=== PATIENT | male | born 1980 | race African-American/Black ===

== ENCOUNTER 2017-06-14 16:17 | Emergency (ER) | payer SELFPAY ==
[2017-06-14 16:26] VITALS: BP 139/80
--- NOTE | 2017-06-14 17:02 | ER Document Report ---
ED Extremity Problem, Upper - General Chief Complaint: R arm pain/ swelling Stated Complaint: RIGHT ARM PAIN Time Seen by Provider: 06/14/17 16:36 Mode of Arrival: Ambulatory Information source: Patient TRAVEL OUTSIDE OF THE [place] IN LAST 30 DAYS: No - HPI Patient complains to provider of: Pain Notes: Patient is here with complaints of right arm pain. The patient states that he donated plasma yesterday and now has a bruised swollen area in the right AC where he had donated from. States that he felt hot throughout the night last night but did not actually take his temperature. No redness. No drainage. He denies any numbness, tingling, weakness. He does state that his arm feels "heavy". He has pain when he touches the area or flexes the arm, it is better with rest. He denies any nausea, vomiting, diarrhea. No chest pain shortness of breath. No other complaints at this time. He is on no blood thinning medications. - Related Data Allergies/Adverse Reactions: No Known Allergies Allergy (Unverified 06/14/17 16:21) Past Medical History - Social History Smoking Status: Never Smoker Frequency of alcohol use: None Drug Abuse: None Family History: Reviewed & Not Pertinent Patient has suicidal ideation: No Patient has homicidal ideation: No Renal/ Medical History: Denies: Hx Peritoneal Dialysis Review of Systems - Review of Systems -: Yes All other systems reviewed and negative Physical Exam - Vital signs Vitals: Temp Pulse Resp BP Pulse Ox 98.7 F 78 16 139/80 H 97 06/14/17 16:24 06/14/17 16:24 06/14/17 16:24 06/14/17 16:24 06/14/17 16:24 - Notes Notes: GENERAL: alert, cooperative, nontoxic, no distress. HEAD: normocephalic, atraumatic EYES: conjunctiva pink without discharge, no external redness or swelling. EARS: no external swelling, no external redness NOSE: atraumatic, no external swelling MOUTH/THROAT: mucous membranes moist and pink NECK: soft, supple, full range of motion, no meningismus. CHEST: no distress, lungs clear and equal throughout. No wheezing, rales, rhonchi. CARDIAC: regular rate and rhythm, no murmur, normal capillary refill, normal pulses. BACK: full range of motion, no CVA tenderness. EXTREMITIES: full range of motion of all extremities. Moderate-sized hematoma to the right AC with some bruising and mild tenderness to palpation. No erythema. No fluctuance. Compartments are soft. Normal pulse and sensation distally. NEURO: alert and oriented 3, no focal deficits, full range of motion of all extremities. PYSCH: appropriate mood, affect. Patient is cooperative. SKIN: pink, warm, dry, no rash. Course - Re-evaluation Re-evalutation: 06/14/17 16:58 Patient is nontoxic appearing with stable vitals. Is here with complaints of right arm pain after donating plasma yesterday. He is noted to have a hematoma to the right AC. Compartments are soft with no sign of compartment syndrome. He has a normal pulse and sensation distally. There is no redness or signs of infection. He has no rash. He is on no blood thinning medications. This point the patient can be discharged home with instructions to apply warm compresses to the area. I will prescribe him Naprosyn he can take for pain. Follow-up if he has not better in 1 week, sooner for worsening pain, fever, redness, numbness, tingling, weakness, any further concerns. The patient is noted to have elevated blood pressure during today's emergency department visit. The patient was informed of this finding. The patient was instructed that this may be related to pre-hypertension and requires further evaluation with a primary care provider. The patient has no hypertensive symptoms at this time. The patient's emergency department workup and current diagnosis were explained to the patient and or family. Follow-up instructions were provided. Medications if prescribed were discussed. Instructions for when to return to the emergency department including specific worrisome symptoms were discussed with the patient and/or family. - Vital Signs Vital signs: Temp Pulse Resp BP Pulse Ox 98.7 F 78 16 139/80 H 97 06/14/17 16:24 06/14/17 16:24 06/14/17 16:24 06/14/17 16:24 06/14/17 16:24 Discharge - Discharge Clinical Impression: Hematoma Condition: Stable Disposition: HOME, SELF-CARE Instructions: Hematoma ([facility]) Additional Instructions: Take medications as prescribed. Apply warm compresses to sore area. Follow-up if not better in 1 week, sooner for worsening symptoms, high fever, redness, numbness, tingling, weakness, any further concerns. Your blood pressure was elevated during today's visit. Have this rechecked with your doctor. Prescriptions: Naproxen [Naprosyn] 500 mg PO BID #20 tablet Forms: Elevated Blood Pressure, Smoking Cessation Education Referrals: [facility] [Provider Group] - Follow up as needed
== END 2017-06-14 17:07 | disposition home or self-care (01) ==
LOC: ER 16:17
DX: L76.32 Postprocedural hematoma of skin and subcutaneous tissue following other procedure (principal); Y84.8 Other medical procedures as the cause of abnormal reaction of the patient, or of later complication, without mention of misadventure at the time of the procedure; R03.0 Elevated blood-pressure reading, without diagnosis of hypertension
CPT/HCPCS: 99283

== ENCOUNTER 2018-11-10 20:04 | Emergency (ER) | payer SELFPAY ==
--- NOTE | 2018-11-10 21:08 | ER Document Report ---
ED Medical Screen (RME) - General Chief Complaint: Insect Bite Stated Complaint: BUG BITE Time Seen by Provider: 11/10/18 20:48 Mode of Arrival: Wheelchair Information source: Patient Notes: Patient is an otherwise healthy 38-year-old male presenting to the emergency department with complaint of redness and swelling to his right foot at the base of his second third fourth and fifth toes. He denies any known injury. Patient thinks he might of been stung by an insect but he is not sure. Patient denies any history of gout. Patient reports the pain is severe and he is unable to put on his shoe. Exam: Cap refill less than 3 seconds, swelling noted with erythema to dorsal surface of left foot near the base of the second third and fourth toes. I have greeted and performed a rapid initial assessment of this patient. A comprehensive ED assessment and evaluation of the patient, analysis of test results and completion of the medical decision making process will be conducted by additional ED providers. I have specifically instructed the patient or family members with the patient to immediately return to any nursing staff should anything change in the patient's condition or with their chief complaint. This medical record was dictated with voice recognizing software. There may be grammatical, syntax errors that are unintended. TRAVEL OUTSIDE OF THE [place] IN LAST 30 DAYS: No - Related Data Allergies/Adverse Reactions: No Known Allergies Allergy (Unverified 06/14/17 16:21) Past Medical History Renal/ Medical History: Denies: Hx Peritoneal Dialysis Physical Exam - Vital signs Vitals: Temp Pulse Resp BP Pulse Ox 98.8 F 86 17 118/64 96 11/10/18 20:09 11/10/18 20:09 11/10/18 20:09 11/10/18 20:09 11/10/18 20:09 Course - Vital Signs Vital signs: Temp Pulse Resp BP Pulse Ox 98.8 F 86 17 118/64 96 11/10/18 20:09 11/10/18 20:09 11/10/18 20:09 11/10/18 20:09 11/10/18 20:09
[2018-11-10] MEDS ORDERED: IBUPROFEN 600 MG TABLET PO ONE (21:49)
[2018-11-10] MEDS ORDERED: CLINDAMYCIN HCL 150 MG CAPSULE PO ONE (21:49)
--- NOTE | 2018-11-10 21:49 | ER Document Report ---
ED Skin Rash/Insect Bite/Abscs - General Chief Complaint: Insect Bite Stated Complaint: BUG BITE Time Seen by Provider: 11/10/18 20:48 Mode of Arrival: Wheelchair TRAVEL OUTSIDE OF THE [place] IN LAST 30 DAYS: No - HPI Notes: This is a 38-year-old gentleman who presents today with a complaint of an insect bite to his right foot. Patient states that he thinks he might have been bitten by an insect yesterday around noon. He states that he put his shoe on and then felt like "my foot was swelling my sneakers." He took it out and noticed the redness and swelling. He denies any snakebite. He denies any trauma. He denies any history of gout. Denies any fever or chills. Describes his symptoms as moderate. Pain is worse with weightbearing. - Related Data Allergies/Adverse Reactions: No Known Allergies Allergy (Unverified 06/14/17 16:21) Past Medical History - General Information source: Patient - Social History Smoking Status: Never Smoker Family History: Reviewed & Not Pertinent Patient has suicidal ideation: No Patient has homicidal ideation: No Renal/ Medical History: Denies: Hx Peritoneal Dialysis Review of Systems - Review of Systems Constitutional: denies: Chills, Fever, Weakness Skin: Change in color -: Yes All other systems reviewed and negative Physical Exam - Vital signs Vitals: Temp Pulse Resp BP Pulse Ox 98.8 F 86 17 118/64 96 11/10/18 20:09 11/10/18 20:09 11/10/18 20:09 11/10/18 20:09 11/10/18 20:09 - General General appearance: Appears well, Alert - Respiratory Respiratory status: No respiratory distress Chest status: Nontender Breath sounds: Normal Chest palpation: Normal - Cardiovascular Rhythm: Regular Heart sounds: Normal auscultation Murmur: No - Extremities General upper extremity: Normal inspection, Nontender, Normal color, Normal ROM, Normal temperature General lower extremity: Normal inspection, Normal ROM, Normal temperature, Normal weight bearing. No: Angeles's sign Foot: Tender - There is erythema and swelling on the dorsum of the right foot just proximal to the second and third and fourth toes. There is no fluctuance to suggest drainable abscess. There is normal distal neurovascular exam of the right lower extremity. No obvious bony tenderness. I do not see any obvious puncture wounds. Course - Re-evaluation Re-evalutation: 11/10/18 21:48 Differential diagnosis includes infected insect bite versus trauma. Strongly doubt acute gouty arthritis with no involvement of the big toe. Doubt osteo-. Will get plain films to rule out any x-ray evidence of osteo-. We will put him on clindamycin and have him follow-up for recheck. 11/10/18 22:27 Patient is doing well. X-rays negative. Follow-up discussed with patient. He is stable for discharge. - Vital Signs Vital signs: Temp Pulse Resp BP Pulse Ox 98.8 F 86 17 118/64 96 11/10/18 20:09 11/10/18 20:09 11/10/18 20:09 11/10/18 20:09 11/10/18 20:09 Discharge - Discharge Clinical Impression: Cellulitis of foot, right Insect bite Qualifiers: Encounter type: initial encounter Site of insect bite: foot Laterality: right Qualified Code(s): S90.861A - Insect bite (nonvenomous), right foot, initial encounter; W57.XXXA - Bitten or stung by nonvenomous insect and other nonvenomous arthropods, initial encounter Condition: Good Disposition: HOME, SELF-CARE Instructions: Cellulitis ([facility]), Insect Bites ([facility]) Additional Instructions: Return immediately if redness goes beyond the marked area. Prescriptions: Clindamycin HCl 300 mg PO TID #30 capsule Naproxen 500 mg PO BID PRN #14 tablet PRN Reason: Referrals: [facility] [NO LOCAL MD] - Follow up in 3-5 days (Call on Monday for follow-up appointment. )
--- NOTE | 2018-11-10 22:02 | RADIOLOGY REPORT (SQ) ---
EXAM DESCRIPTION: XR FOOT 3 OR MORE VIEWS COMPLETED DATE/TME: 11/10/2018 21:06 CLINICAL HISTORY: pain/swelling at toes COMPARISON: None FINDINGS: Three x-ray views of the right foot were submitted. There is no acute fracture or dislocation. Bone mineralization is within normal limits. There is no radiopaque foreign body material. There is soft tissue swelling mainly within the lateral distal foot. IMPRESSION: No acute fracture or dislocation. Soft tissue swelling.
[2018-11-10 22:40] VITALS: BP 130/58
== END 2018-11-10 22:40 | disposition home or self-care (01) ==
LOC: ER 20:04
DX: S90.861A Insect bite (nonvenomous), right foot, initial encounter (principal); L03.115 Cellulitis of right lower limb; W57.XXXA Bitten or stung by nonvenomous insect and other nonvenomous arthropods, initial encounter
CPT/HCPCS: 99282

== ENCOUNTER 2019-12-16 18:31 | Emergency (ER) | payer SELFPAY ==
[2019-12-16 19:21] VITALS: BP 119/69
== END 2019-12-16 21:44 | disposition left against medical advice (07) ==
LOC: ER 18:31
DX: Z53.21 Procedure and treatment not carried out due to patient leaving prior to being seen by health care provider (principal)